=== PATIENT | male | born 1975 | race Two or more races ===

== ENCOUNTER 2021-03-20 15:50 | Emergency (ER) | payer OTHER, SELFPAY ==
--- NOTE | ~2021-03-20 | XR_ITS ---
EXAMINATION: XR HAND, RIGHT CLINICAL INFORMATION: Injury while playing softball. Pain in the third and fourth digits. COMPARISON: No similar priors. TECHNIQUE: PA, lateral, and oblique views of the right hand. FINDINGS: There are obliquely oriented fractures in the mid to lower shafts of the third and fourth metacarpal bones. The distal fracture fragments are medially and anteriorly displaced by approximately 3 mm. There is questionable extension into the carpometacarpal joints. No other fractures. There are mild degenerative changes in the radiocarpal joint and triscaphe manifested by space narrowing, subcortical sclerosis and bony spurs. No unexpected radiopaque foreign bodies. Soft tissue edema surrounding the fracture sites. XR/XR hand RT min 3V IMPRESSION: Mildly displaced fractures of the third and fourth metacarpals as above.
[2021-03-20 15:54] VITALS: BP 100/54; PULSE 67; RESP 18; TEMP 36.8; O2SAT 97
--- NOTE | 2021-03-20 16:29 | ED.EXTPRO ---
HPI - Extremity Problem General Chief complaint: Extremity Injury, Upper Stated complaint: Hand injury Time Seen by Provider: 03/20/21 16:12 Source: patient Mode of arrival: ambulatory Limitations: no limitations History of Present Illness HPI Narrative: non dominant hand MD Complaint: extremity pain and extremity swelling Onset (ago): minute(s) Pain Consistency: constant Location: left and upper extremity (hand) Quality: aching and constant Radiation: none Relieving factors: immobilization Exacerbating factors: range of motion and palpation Associated symptoms: denies other symptoms Context: other (was trying to field a softball his hand was in a mitt he felt all of his fingers bend backwards) Related Data Previous Rx's Medication Instructions Recorded hydrocodone 5 mg-acetaminophen 325 1 tab PO Q6H PRN #12 tab 03/20/21 mg tablet ibuprofen 600 mg tablet 600 mg PO Q6H PRN #30 tab 03/20/21 Allergies Allergy/AdvReac Type Severity Reaction Status Date / Time No Known Allergies Allergy Verified 03/20/21 15:54 Review of Systems Review of Systems: Constitutional : No Fever, No Chills ENT/Mouth : No Ear Pain, No Hoarseness, No sore throat Eyes: No Eye Pain, No Swelling, No Redness, No Foreign Body Cardiovascular : No Chest Pain, No SOB Respiratory : No Cough, No Dyspnea Gastrointestinal : No Nausea, No Vomiting, No Diarrhea, No abdominal Pain Genitourinary : No Dysuria, No Hematuria Musculoskeletal : positive joint pain, No Myalgias, pos Joint Swelling Skin : No Skin lacerations, No rash Neuro : No Weakness, No Numbness PMFSH Past Medical History Attestation statement: The following information was validated with the patient. Medical History No known health problems Social History Social History (Updated 03/20/21 @ 16:35 by Esther Baeza DO) Patient Tobacco Use Status: Never used Tobacco Advance Directives: No Advance Directives Information Provided: No Physical Exam Vital Signs: Vital Signs: Last Vital Signs Temp 98.2 F 03/20/21 15:54 Pulse 67 03/20/21 15:54 Resp 18 03/20/21 15:54 BP 100/54 L 03/20/21 15:54 Pulse Ox 97 03/20/21 15:54 Body Mass Index 0.2 Appearance: Alert. Oriented X3. No acute distress. Eyes: Pupils equal, round and reactive to light. ENT: Pharynx normal. Neck: Normal inspection. Neck supple. CVS: Pulses normal. Respiratory: No respiratory distress. Abdomen: Soft and non-tender. Skin: Skin warm and dry. Normal skin color. Extremities: R hand swelling on the dorsum distal NV intact BCR in digits crepitus felt over 3/4th metacarpals - no forearm/elbow pain Neuro: Oriented X 3. No motor deficit. No sensory deficit. Course Course Course Narrative: discussed with Luba BERG - modified ulnar gutter splint to include - follow up this week in clinic MDM - Extremity (Nontraumatic) MDM Narrative Medical decision making narrative: 45 yo male non dominant hand injury - distal NV intact, xray shows metacarpal fractures - will notify orthopedics will likely need close follow up, splinting ordered, no other injuries reported Procedures Orthopedic Splinting/Casting Injury #1: Side: right Upper Extremity Injury Location: hand Upper Extremity Immobilizer: ulnar gutter (modified to include 3rd/4th/5th fingers) Additional Comments: distal NV intact Discharge Plan Discharge Clinical Impression: Mult fx of metacarpal bones, closed Patient Disposition: Home, Self-Care Instructions: Hand Fracture (ED) Additional Instructions: return to ED for any worsening symptoms or concerns wear splint until released, rest, ice elevate the affected arm 3rd and 4th metacarpal fractures Prescriptions: New hydrocodone-acetaminophen 5-325 mg tablet 1 tab PO Q6H PRN (Reason: pain) Qty: 12 RF: 0 ibuprofen 600 mg tablet 600 mg PO Q6H PRN (Reason: pain) Qty: 30 RF: 0 Referrals: Mariely Parada MD [Physician] - 2 days (call for appointment this week please call tomorrow) Stand Alone Forms: Work/School Release
== END 2021-03-20 17:28 | disposition home or self-care (01) ==
PROVIDERS: Emergency Provider Emergency Medicine; PCP Internal Medicine
DX: S62.323A Displaced fracture of shaft of third metacarpal bone, left hand, initial encounter for closed fracture (principal); S62.325A Displaced fracture of shaft of fourth metacarpal bone, left hand, initial encounter for closed fracture; W21.07XA Struck by softball, initial encounter; Y93.64 Activity, baseball; Y92.320 Baseball field as the place of occurrence of the external cause; Y99.9 Unspecified external cause status
CPT/HCPCS: 29125; 73130; 99283; 99284

== ENCOUNTER → 2021-03-23 13:07 | Outpatient (BNVA) | payer OTHER, SELFPAY | PROVIDERS: PCP Internal Medicine; Visit Provider Physician Assistant ==

== ENCOUNTER 2021-04-01 08:45 | Day surgery (SDC) | payer OTHER, SELFPAY ==
--- NOTE | 2021-03-31 08:50 | P.CONAN_ITS ---
Documented by User: Naz Kumar NP 03/31/21 08:50 HPI - Anesthesia Eval Consult details Narrative: 45yo M for Right Metacarpal ORIF vs CRPP 3rd and 4th [facility] Active Problems Active Problems: All Active Problems (Updated 03/23/21 @ 13:46 by Wilman Sosa PA-C) Fracture of shaft of third metacarpal bone (Acute) Fracture of shaft of fourth metacarpal bone (Acute) Past Medical History Medical History No known health problems Social History Social History (Updated 03/23/21 @ 13:33 by Wilman Sosa PA-C) Alcohol intake: current Alcohol intake frequency: holidays/special occasions only Patient Tobacco Use Status: Never used Tobacco Advance Directives: No Advance Directives Information Provided: Yes Recently lost weight without trying: No Nutrition Risks: No Nutritional Risk Poor oral hygiene: No 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 Allergies Allergy/AdvReac Type Severity Reaction Status Date / Time No Known Allergies Allergy Verified 03/25/21 14:23 Exam Exam Date and Time: March 31, 2021 0850 Assessment and Plan Assessment Anesthesia Assessment: Chart Reviewed Documented by User: Medhat Malik MD 04/01/21 10:02 [facility] Past Medical History Medical History No known health problems Family History Family history of problems with anesthesia: No Surgical History History of Problems with Anesthesia: No Social History Social History (Updated 03/23/21 @ 13:33 by Wilman Sosa PA-C) Alcohol intake: current Alcohol intake frequency: holidays/special occasions only Patient Tobacco Use Status: Never used Tobacco Advance Directives: No Advance Directives Information Provided: Yes Recently lost weight without trying: No Nutrition Risks: No Nutritional Risk Poor oral hygiene: No 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 Allergies Allergy/AdvReac Type Severity Reaction Status Date / Time No Known Allergies Allergy Verified 03/25/21 14:23 Exam Airway Mallampati Class: II TM Dist: >3cm Neck ROM: Full Loose/Missing/Broken Teeth: No Heart: rrr+s1s2 Lungs: cta b/l Assessment and Plan Assessment Anesthesia Assessment: Anesthesia Plan Discussed Final Anesthetic Review Family History of Problems with Anesthesia: No History of Problems with Anesthesia: No NPO: Yes ASA Class: II Final Preanesthetic Review: No Changes in Pt Med Stat, Meds/Allgs Chart Reviewed, Consent Obtained/Reviewed and Anes Risks/Benef Reviewed Patient Risk: Intermediate Procedure Risk: Low Assessment/Block/Sedation in SS: Assess/Block/Sedation-SS Anesthetic Plan Anesthetic Plan: GA and Agree w/ Assess. and Plan Disposition: Standard PACU
[2021-04-01] VITALS (12 sets, daily range): BP systolic 105–136; BP diastolic 61–74; PULSE 50–78; RESP 15–19; TEMP 36.4–36.8; O2SAT 97–99; BMI 22.4
--- NOTE | ~2021-04-01 | FL_ITS ---
EXAMINATION: XR FLUOROSCOPY WITH IMAGES CLINICAL INFORMATION: Fractures right third and fourth metacarpals. COMPARISON: Radiographs right hand 03/20/2021 TECHNIQUE: Fluoroscopy performed by Dr. Mariely Parada. Fluoroscopy time: 2.4 minutes DAP: [id number] Images: 7 FINDINGS: The proximal shaft fractures right third and fourth metacarpals are reduced with longitudinal orthopedic pins at each site. Fracture fragments are in near-anatomic alignment. Hardware intact. No dislocation. FL/FL guidance in OR IMPRESSION: Status post reduction. For metacarpal fractures in near-anatomic alignment. Hardware intact.
[2021-04-01] MEDS: Lactated Ringers 1,000 ML 100 ML IVCONT (09:21)
--- NOTE | 2021-04-01 12:13 | P.OP_ITS ---
Operative Note Operative Note Date of Service: 04/01/21 Narrative: Operative Note Narrative: Preop diagnosis: 1. Right 3rd metacarpal shaft fracture 2. Right 4th metacarpal shaft fracture Postop diagnosis: Same Procedure: 1. Right 3rd metacarpal shaft fracture CRPP 2. Right 4th metacarpal shaft fracture ORIF Surgeon: Mariely Parada MD Anesthesia: General Findings: Metacarpal fractures Implants: 0.062 K-wires times 2 Tourniquet time: None EBL: Minimal Specimen: None Drains: None Complications: None Disposition: Brought to the recovery room in stable condition Plan: Follow-up in 10-14 days for a wound check, postop radiographs and for placement in a short-arm cast or splint Anticipate K-wire removal in 5 weeks based on interval bony healing Educate the patient that full fracture healing anticipated in approximately 8-12 weeks. Indications: The patient is 45years old with right 3rd and 4th metacarpal shaft fractures with displacement The risks and benefits of operative treatment, including but not limited to risk of damage to blood vessels, nerves, tendons, infection, recurrence, delayed or nonunion of fracture, persistent pain or numbness, incomplete resolution of preoperative symptoms, or need for further surgery were discussed with the patient and they wished to proceed with surgery. Procedure: Once consent was obtained patient was brought back to the operating suite and placed in the operating table in a supine position. . Perioperative antibiotics and general anesthesia was administered by the anesthesia team. A tourniquet was applied to the proximal aspect of the right upper extremity and the limb was prepped and draped in a standard surgical fashion. The limb was elevated exsanguinated with an Esmarch bandage and tourniquet inflated for a total tourniquet time of 30 minutes. FluoroScan was used throughout the case to assess our reduction and placement of all implants. A 0.062 K-wire was placed retrograde through the head of the 3rd metacarpal. This was then advanced proximally to our mid shaft fracture site. Holding our reduction the K-wire was then advanced across the fracture site and down to the base of the 3rd metacarpal. Once satisfied on multiple fluoroscopic images a 2nd 0.062 K-wire was placed retrograde through the head of the 4th metacarpal. This was also advanced down to the fracture site. We were unable to obtain a satisfactory reduction, and a 2.5 cm longitudinal incision was made over the dorsal aspect of the 4th metacarpal shaft fracture. This was done using a 15. Blade through the skin to the subcutaneous tissues. I then dissected down to the level of the 4th metacarpal shaft fracture. An open reduction was performed on this 4th metacarpal shaft fracture. The 0.062 K-wire was then advanced retrograde across the fracture site and down to the base of the 4th metacarpal. The fingers were assessed for rotation and no malrotation was identified. We were satisfied with our reduction and placement of all implants. The pins were then bent cut short had pin caps applied. The wounds were copiously irrigated with normal saline. The skin edges were reapproximated with some 5 0 Prolene suture material and the wound was infiltrated with some 1% lidocaine with epinephrine for postop pain control. A Sterile dressing and short volar splint was applied. The patient appears to have tolerated the procedure well and with no complications. All digits were we ll vascularized at the conclusion of the case.
--- NOTE | 2021-04-01 12:13 | MHC.SHP ---
Pre-Procedural Eval Section A Date of Service: 04/01/21 The patient is an INPATIENT: No Changes since office visit: No Cold of Flu in the past 2 weeks, No New Medical Problems, No Changes in Medication and No Patient answered all questions The History & Physical has been completed within 30 days and I have reviewed it.: Yes Section B Chief Complaint: displace fx of shaft Allergies: Allergies Allergy/AdvReac Type Severity Reaction Status Date / Time No Known Allergies Allergy Verified 03/25/21 14:23 Plan I have reviewed the history and physical and performed a pertinent physical examination on my patient. No changes have occurred unless specified.
--- NOTE | 2021-04-01 12:35 | HO.POSTANES ---
Post Anesthesia Evaluation Post Anesthesia Evaluation Vital Signs: Vital Signs Temp Pulse Resp BP Pulse Ox 04/01/21 12:30 65 17 126/69 99 04/01/21 12:25 65 17 120/67 99 04/01/21 12:20 97.6 F 78 16 127/73 98 04/01/21 09:06 98.2 F 50 15 127/61 97 Anesthesia: General Mental Status: Awake Pain Control: Satisfactory Nausea/Vomiting: None Hydration: Adequate Anesthesia-Related Issues: No Anes. Related Issues Comments: patient with upper tooth 2 teeth cap which was loose according to the patient due to sporting accident. he left his 2 tooth partial at home and decided to leavein the 2 teeth cap. Upon removal of the LMA the 2 teeth cap came off. alejandro states that this always happens and that he pops it right back in% teeth were given back to carmencita cm by the PACU nurse.
[2021-04-01] MEDS: Acetaminophen 325 MG TABLET 650 MG PO (12:41)
[2021-04-01] MEDS: oxyCODONE HCl Immed Release 5 MG TABLET 10 MG PO (12:41)
[2021-04-01] MEDS: fentaNYL citrate/PF 100 MCG/2 ML VIAL 50 MCG IVPUSH ×2 (12:49→13:07)
== END 2021-04-01 15:35 | disposition home or self-care (01) ==
PROVIDERS: PCP Internal Medicine; Visit Provider Orthopaedic Surgery
PROC: (CPT 26615; principal; 2021-04-01 09:50)
DX: S62.322A Displaced fracture of shaft of third metacarpal bone, right hand, initial encounter for closed fracture (principal); S62.324A Displaced fracture of shaft of fourth metacarpal bone, right hand, initial encounter for closed fracture; W18.01XA Striking against sports equipment with subsequent fall, initial encounter; Y93.64 Activity, baseball; Y92.9 Unspecified place or not applicable; Y99.8 Other external cause status
CPT/HCPCS: 26608; 26615; J0690; J1100; J2250; J2405; J3010

== ENCOUNTER → 2021-04-04 14:01 | Outpatient (BNVA) | payer OTHER, SELFPAY | PROVIDERS: Visit Provider Physician Assistant ==

== ENCOUNTER 2021-04-12 13:38 | Outpatient (REF) | payer OTHER, SELFPAY ==
--- NOTE | ~2021-04-12 | XR_ITS ---
EXAMINATION: XR HAND, RIGHT CLINICAL INFORMATION: Unable to extend fingers with right hand pain. COMPARISON: Right hand radiograph 03/20/2021 and fluoroscopy right hand 04/01/2020. TECHNIQUE: PA, lateral, and oblique views of the right hand. FINDINGS: Since the prior study, pins have been placed through the 3rd and 4th metacarpal spiral mid shaft fractures. Alignment is significantly improved when compared to the radiographs obtained prior to pin placement. Significant periosteal reaction/healing is not seen as of yet. No acute fracture is seen. XR/XR hand RT min 3V IMPRESSION: Postoperative changes 3rd and 4th metacarpal with interval placement of pins.
== END 2021-04-12 13:39 | disposition home or self-care (01) ==
LOC: HO.HOSX 13:38
PROVIDERS: Visit Provider Orthopaedic Surgery
DX: S62.328D Displaced fracture of shaft of other metacarpal bone, subsequent encounter for fracture with routine healing (principal)
CPT/HCPCS: 73130

== ENCOUNTER 2021-04-27 08:23 | Outpatient (REF) | payer OTHER, SELFPAY ==
--- NOTE | ~2021-04-27 | XR_ITS ---
EXAMINATION: XR HAND, RIGHT CLINICAL INFORMATION: Pain in right hand. COMPARISON: XR right hand 04/12/2021 TECHNIQUE: PA, lateral, and oblique views of the right hand. FINDINGS: The K wires transfixing the oblique fractures of the proximal to mid diaphyses of the 3rd and 4th metacarpals are unchanged in position. There is no significant change in the mild ulnar and dorsal displacement of the distal fracture fragments, slightly more so involving the 4th metacarpal. There may be minimal external callus adjacent to the 3rd metacarpal fracture. XR/XR hand RT min 3V IMPRESSION: Minimal external callus adjacent to the 3rd metacarpal fracture but otherwise no significant change in the mildly displaced 3rd and 4th metacarpal fractures
== END 2021-04-27 08:24 | disposition home or self-care (01) ==
LOC: HO.HOSX 08:23
PROVIDERS: Visit Provider Orthopaedic Surgery
DX: S62.328D Displaced fracture of shaft of other metacarpal bone, subsequent encounter for fracture with routine healing (principal)
CPT/HCPCS: 73130

== ENCOUNTER 2021-05-04 08:26 | Outpatient (REF) | payer OTHER, SELFPAY ==
--- NOTE | ~2021-05-04 | XR_ITS ---
EXAMINATION: XR HAND, RIGHT CLINICAL INFORMATION: Right hand pain COMPARISON: Recent including 04/27/2021 TECHNIQUE: PA, lateral, and oblique views of the right hand. FINDINGS: Interval removal of pins. No significant healing noted. Obliquely oriented acute mildly displaced fractures of the proximal diaphysis of the third and fourth metacarpal bones. No definite articular surface involvement or dislocation. Overlying soft tissue swelling. In addition, there is a deformity system with a fracture of the scaphoid bone which is slightly comminuted with overlying soft tissue swelling. Correlate with physical exam concerning whether this represents an acute or chronic deformity. XR/XR hand RT min 3V IMPRESSION: Acute fractures third and fourth metacarpal bones as above. Comminuted age-indeterminate but potentially acute fracture scaphoid bone this is similar to baseline.
== END 2021-05-04 08:27 | disposition home or self-care (01) ==
LOC: HO.HOSX 08:26
PROVIDERS: Visit Provider Orthopaedic Surgery
DX: S62.328D Displaced fracture of shaft of other metacarpal bone, subsequent encounter for fracture with routine healing (principal)
CPT/HCPCS: 73130

== ENCOUNTER → 2021-05-24 09:06 | Outpatient (BNVA) | payer OTHER, SELFPAY | PROVIDERS: PCP Internal Medicine; Visit Provider Orthopaedic Surgery ==

== ENCOUNTER 2021-06-29 13:00 | Outpatient (RCR) | payer OTHER, SELFPAY ==
--- NOTE | 2021-07-21 10:40 | MHC.OT.DC ---
[address] [phone] F: [phone] Occupational Therapy Discharge Note Provider: Mariely Parada MD Diagnosis: Right 3rd and 4th MC shaft fx. CRPP 3rd MC ORIF 4 th MC Date of Surgery: 04/01/21 Date of Evaluation: 05/02/21 Date of Discharge: 07/21/21 Treatments to Date: 11 Cancellations to Date: No Shows to Date: Discharge Status: Achieved Goals Improved Function Independent with HEP Discharge Summary: Improving hand ROM and function, just shy of full active extension at D4 MCP and PIP. Pt has good awareness of HEP and scar management techniques. Electronically Signed By: Chapis Mishra OT CHT CLT Reviewed/agree with student documentation: N/A Therapist: Please Sign and return to therapist, thank you for your referral.
== END 2021-07-21 10:40 | disposition home or self-care (01) ==
LOC: HO.OT 13:00
PROVIDERS: PCP Internal Medicine; Visit Provider Orthopaedic Surgery
DX: S62.328D Displaced fracture of shaft of other metacarpal bone, subsequent encounter for fracture with routine healing (principal); M25.641 Stiffness of right hand, not elsewhere classified
CPT/HCPCS: 29130; 97033; 97035; 97110; 97140; 97165; 97760

== ENCOUNTER 2022-09-01 10:40 | Outpatient (REF) | payer OTHER, SELFPAY ==
[2022-09-01 14:11] LABS: Alanine Aminotransferase 14 U/L (0-40); Albumin Level 4.1 g/dL (3.5-5.0); Alkaline Phosphatase 80 U/L (39-117); Anion Gap 9 (12-20); Aspartate Amino Transferase 15 U/L (5-37); Bilirubin Total 0.4 mg/dL (0.0-1.0); Blood Urea Nitrogen 11 mg/dL (9-16); Calcium 9.1 mg/dL (8.4-10.2); Carbon Dioxide 28 mmol/L (22-29); Chloride 110 mmol/L (96-108); Cholesterol 187 mg/dL; Estimated Glomerular Filt Rate > 60; Glucose Fasting 104 mg/dL (60-99); HDL Cholesterol 49 mg/dL; LDL Cholesterol Calculated 128 mg/dl; Potassium 4.2 mmol/L (3.3-5.1); Sodium 143 mmol/L (135-145); Total Protein 6.7 g/dL (6.5-8.0); Triglycerides 52 mg/dL
[2022-09-01 14:26] LABS: Prostate Specific Antigen Scr 0.87 ng/mL (<0.05-4.0); TSH reflex Free T4 0.59 uIU/mL (0.32-4.0)
[2022-09-01 14:27] LABS: HBS Num1 297.64 mIU/mL (0-7.99); HBc Num1 0.13 S/CO (0.00-0.79); HBsAGNum1 0.42 S/CO (0.00-0.99); HIV AB/AG Nonreactive (Nonreactive); HIV Num 1 0.11 S/CO (0.00-0.99); Hepatitis B Core Antibody Nonreactive (Nonreactive); Hepatitis B Surface Antigen Negative (Negative); Syphilis Screen Nonreactive (Nonreactive); ~Hepatitis B Surface Antibody REACTIVE (Nonreactive); ~Hepatitis C Antibody Nonreactive (Nonreactive)
== END 2022-09-01 10:41 | disposition home or self-care (01) ==
LOC: HO.WFDLDS 10:40
PROVIDERS: Visit Provider Family Medicine
DX: Z00.00 Encounter for general adult medical examination without abnormal findings (principal); Z12.5 Encounter for screening for malignant neoplasm of prostate; Z20.2 Contact with and (suspected) exposure to infections with a predominantly sexual mode of transmission
CPT/HCPCS: 36415; 80053; 80061; 84153; 84443; 86704; 86706; 86780; 86803; 87340; 87389

== ENCOUNTER 2022-09-20 10:30 | Outpatient (REF) | payer OTHER, SELFPAY | END 2022-09-20 10:31 | disposition home or self-care (01) | LOC: HO.LAB 10:30 | PROVIDERS: Visit Provider Family Medicine | DX: Z13.89 Encounter for screening for other disorder (principal) ==

== ENCOUNTER 2023-02-09 10:39 | Outpatient (AMB) | payer OTHER, SELFPAY ==
--- NOTE | 2023-02-09 10:42 | A.OFFPC_ITS ---
Vital Signs 02/09/23 10:43 Height 5 ft 5 in Weight 143 lb 8 oz BMI 23.9 BP 110/64 Blood Pressure Location Rt brachial Position Sitting Pulse 55 Pulse Source Pulse Oximeter Pulse Oximetry (%) 95 Oxygen Delivery Method Room Air Intake Visit Reasons: Follow-up elevated fasting blood sugars Intake Note: Patient is here to follow up on elevated fasting blood sugars. Allergies No Known Allergies Allergy (Verified 02/09/23 10:45) Tobacco use date assessed: 02/09/23 Dental Screening Dental Screen Date: 02/09/23 Did you have a dental visit in the last 12 months?: No Did you have a dental problem in the last 6 months where you did not have access to dental care?: No Was dental information given to patient?: Patient has dentist HPI Follow-up elevated fasting blood sugars HPI Details 47 y/o male presents to f/u elevated fas ting blood sugars. Last A1c 11/06/22 was 5.5%. A1c today 02/09/23 is 5.5%. Pt notes he continues to work on a healthy diet. 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 Cognitive needs: No Hearing needs: No Vision needs: No Review of Systems Const Denies chills, Denies fatigue, Denies fever(s), Denies headache(s) and Denies weakness ENT Denies dizziness and Denies headache(s) Card Denies chest pain, Denies lightheadedness, Denies dyspnea and Denies other (Palpitations) Resp Denies cough, Denies dyspnea, Denies wheezing and Denies other ( shortness of breath) Musc Denies numbness and Denies tingling Neuro Denies dizziness, Denies headache(s), Denies numbness, Denies tingling, Denies paresthesias and Denies weakness Psych Denies anxiety and Denies depression Endo Denies fatigue Aller/Immun Denies wheezing Physical exam (Primary Care) Vital Signs: Last Vital Signs Pulse 55 02/09/23 10:43 BP 110/64 02/09/23 10:43 Pulse Ox 95 02/09/23 10:43 Oxygen Delivery Method Room Air 02/09/23 10:43 BMI result Body Mass Index 23.9 Tobacco/Smoking Status: Tobacco use Status Tobacco use date assessed 02/09/23 02/09/23 10:49 Patient Tobacco Use Status Never used Tobacco 02/09/23 10:49 e-Cigarette/Vaping Use Never Used 02/09/23 10:49 Const General: no acute distress and well developed Nutritional Appearance: well nourished Orientation/consciousness: patient oriented x3 HENMT Head: Yes normocephalic and Yes atraumatic Eyes General: appearance normal, both eyes and all related structures Pupils: Equal, round and reactive pupils present EOM: EOMs intact bilaterally Resp Effort & Inspection: normal respiratory effort Auscultation: clear to auscultation bilaterally Cardio Rate: regular rate Rhythm: regular rhythm Heart sounds: S1 normal heart sound present, S2 normal heart sound present, no gallops, no murmurs and no rubs Neuro General: patient oriented x3 and gait normal Cranial nerves: Yes Equal, round and reactive pupils present Psych Affect: normal affect Results AMB Hemoglobin A1c AMB Hemoglobin A1c 5.5 % Last Edit by Erin Hidalgo CMA on 02/09/23 10:57 Results Reviewed Results Reviewed: Laboratory Last Values Hgb A1c (Clinic) 5.5 % (4.0-6.0) 02/09/23 10:55 Assessment and Plan Assessment & Plan (1) Elevated fasting glucose: Code(s): R73.01 - Impaired fasting glucose Plan: History?of?elevated?fasting?blood?sugars?and?strong?family?history?of?diabetes. A1c?in?October?was?5.5%?and?today?is?again?5.5%.??Steady?and?at?top?normal?range. Continue?healthy?diet?low?in?sugars?and?starche s.??Continue?weight?control?and?exercise We?will?follow?A1c?test?periodically Orders: Orders AMB Hemoglobin A1c Today Z13.9 - Encounter for screening, unspecified Coding Level of Care Code Est Pt Level 3 (87278) Diagnoses Elevated fasting glucose R73.01
[2023-02-09 10:43] VITALS: BP 110/64; PULSE 55; O2SAT 95; BMI 23.9
== END 2023-02-09 11:23 | disposition home or self-care (01) ==
PROVIDERS: PCP Family Medicine; Visit Provider Family Medicine
DX: R73.01 Impaired fasting glucose (principal); Z13.9 Encounter for screening, unspecified
CPT/HCPCS: 83036; 99213